=== PATIENT | female | born 1970 | race African-American/Black ===

== ENCOUNTER 2017-02-24 15:56 | Emergency (ER) | payer OTHER ==
[~2017-02-24] VITALS: Ht 160 cm; Wt 65.0 kg
[~2017-02-24 15:56] MED LIST: ASPI81TA82 PO
[2017-02-24 15:58] VITALS: BP 115/79; PULSE 108; RESP 20; TEMP 98.8; O2SAT 95
[2017-02-24] MEDS ORDERED: MORPHINE SULFATE 4 MG/ML INJ IV PUSH ONE (16:45)
[2017-02-24 16:47] LABS: AUTOMATED NEUTROPHIL # 3.1 TH/MM3 (1.8-7.7); BASOPHIL % 0.6 % (0.0-2.0); EOSINOPHIL % 0.6 % (0.0-4.0); HEMATOCRIT 38.6 % (35.0-46.0); HEMO FLAGS DIFF FINAL; LYMPH % 42.7 % (9.0-44.0); LYMPHOCYTE # 3.2 TH/MM3 (1.0-4.8); MEAN CELL VOLUME 87.6 FL (80.0-100.0); MEAN CORPUSCULAR HEMOGLOBIN 28.7 PG (27.0-34.0); MEAN CORPUSCULAR HGB CONC 32.8 % (32.0-36.0); NEUT % 42.1 % (16.0-70.0); PLATELET COUNT 313 TH/MM3 (150-450); RED CELL DISTRIBUTION WIDTH 13.6 % (11.6-17.2); WHITE BLOOD COUNT 7.4 TH/MM3 (4.0-11.0)
[2017-02-24 17:00] LABS: ALT (GPT) 35 U/L (10-53); ANION GAP 8 MEQ/L (5-15); AST (GOT) 20 U/L (15-37); BICARBONATE 22.8 MEQ/L (21.0-32.0); BLOOD UREA NITROGEN 15 MG/DL (7-18); CHLORIDE 106 MEQ/L (98-107); GLOMERULAR FILTRATION RATE 109 ML/MIN (>89); POTASSIUM 3.7 MEQ/L (3.5-5.1); SODIUM (NA) 137 MEQ/L (136-145)
[2017-02-24 17:17] LABS: ALKALINE PHOSPHATASE 64 U/L (45-117); BETA HCG QUANT 10395 MIU/ML (0-5); TOTAL BILIRUBIN ADULT 0.3 MG/DL (0.2-1.0)
--- NOTE | 2017-02-24 17:20 | PD ---
HPI Chief Complaint: Pain: Acute or Chronic Time Seen by Provider: 16:09 (Charlie Mathias MD) Travel History International Travel<30 days: No Contact w/Intl Traveler<30days: No Traveled to known affect area: No (Charlie Mathias MD) History of Present Illness HPI Is a 46-year-old woman who presents to the emergency department complaining of low back pain, as well as some sore throat. She is primarily Slovak/Creole speaking, and is difficult to get a history from. She states she can understand everything well, does not want a director transition. She reports she last had a menstrual period in December, she has was but thinks that she had a miscarriage because she's been bleeding since the beginning of January. This would be her seventh and she's had 3 other previous miscarriages. (Charlie Mathias MD) History Past Medical History Medical History: Denies Significant Hx Tetanus Vaccination: Unknown Influenza Vaccination: No LMP: December : 7 Para: 3 Dilation and Curettage (D&C): Yes (X 2) (Charlie Mathias MD) Social History Alcohol Use: No Tobacco Use: No (Charlie Mathias MD) Allergies-Medications (Allergen,Severity, Reaction): Coded Allergies: No Known Allergies (Verified , 02/24/17) Reported Meds & Prescriptions Reported Meds & Active Scripts Active No Active Prescriptions or Reported Medications (Sammie Recinos MD) Review of Systems Except as stated in HPI: all other systems reviewed are Neg (Charlie Mathias MD) Physical Exam Narrative GENERAL: Well-appearing 46 year-old woman, appears uncomfortable. She is holding her back. SKIN: Focused skin assessment warm/dry. ENT: No nasal bleeding or discharge. Mucous membranes pink and moist. Some irritation to the posterior oropharynx. A little bit of ulceration on the left side of the tongue. NECK: Trachea midline. No JVD. CARDIOVASCULAR: Regular rate and rhythm. No murmur appreciated. RESPIRATORY: No accessory muscle use. Clear to auscultation. Breath sounds equal bilaterally. GASTROINTESTINAL: Abdomen is flat and soft. Minimal suprapubic tenderness. MUSCULOSKELETAL: No obvious deformities. No edema. NEUROLOGICAL: Awake and alert. No obvious cranial nerve deficits. Motor grossly within normal limits. Normal speech. PSYCHIATRIC: Appropriate mood and affect; insight and judgment normal. (Charlie Mathias MD) Data Data Last Documented VS Vital Signs Date Time Temp Pulse Resp B/P (MAP) Pulse Ox O2 Delivery O2 Flow Rate FiO2 02/24/17 18:00 80 16 128/58 (81) 98 Room Air 02/24/17 15:58 98.8 (Sammie Recinos MD) Orders Orders Urinalysis - C+S If Indicated (02/24/17 16:15) Ed Urine Pregnancytest Poc (02/24/17 16:15) Complete Blood Count With Diff (02/24/17 16:32) Comprehensive Metabolic Panel (02/24/17 16:32) Beta Hcg (Quant/Titer) (02/24/17 16:32) Ed Poc Ultrasound (02/24/17 ) Iv Access Insert/Monitor (02/24/17 16:32) Morphine Inj (Morphine Inj) (02/24/17 16:45) Us Pelvis (Ques Pr/Ect)W Trans (02/24/17 ) (Sammie Recinos MD) Labs Laboratory Tests Test 02/24/17 16:35 02/24/17 17:30 White Blood Count 7.4 TH/MM3 Red Blood Count 4.40 MIL/MM3 Hemoglobin 12.6 GM/DL Hematocrit 38.6 % Mean Corpuscular Volume 87.6 FL Mean Corpuscular Hemoglobin 28.7 PG Mean Corpuscular Hemoglobin Concent 32.8 % Red Cell Distribution Width 13.6 % Platelet Count 313 TH/MM3 Mean Platelet Volume 8.2 FL Neutrophils (%) (Auto) 42.1 % Lymphocytes (%) (Auto) 42.7 % Monocytes (%) (Auto) 14.0 % Eosinophils (%) (Auto) 0.6 % Basophils (%) (Auto) 0.6 % Neutrophils # (Auto) 3.1 TH/MM3 Lymphocytes # (Auto) 3.2 TH/MM3 Monocytes # (Auto) 1.0 TH/MM3 Eosinophils # (Auto) 0.0 TH/MM3 Basophils # (Auto) 0.0 TH/MM3 CBC Comment DIFF FINAL Differential Comment Blood Urea Nitrogen 15 MG/DL Creatinine 0.70 MG/DL Random Glucose 87 MG/DL Total Protein 7.4 GM/DL Albumin 3.5 GM/DL Calcium Level 8.7 MG/DL Alkaline Phosphatase 64 U/L Aspartate Amino Transf (AST/SGOT) 20 U/L Alanine Aminotransferase (ALT/SGPT) 35 U/L Total Bilirubin 0.3 MG/DL Sodium Level 137 MEQ/L Potassium Level 3.7 MEQ/L Chloride Level 106 MEQ/L Carbon Dioxide Level 22.8 MEQ/L Anion Gap 8 MEQ/L Estimat Glomerular Filtration Rate 109 ML/MIN Human Chorionic Gonadotropin, Quant 66799 MIU/ML Urine Color LIGHT-YELLOW Urine Turbidity CLEAR Urine pH 5.5 Urine Specific [place] 1.010 Urine Protein NEG mg/dL Urine Glucose (UA) NEG mg/dL Urine Ketones 10 mg/dL Urine Occult Blood MOD Urine Nitrite NEG Urine Bilirubin NEG Urine Urobilinogen LESS THAN 2.0 MG/DL Urine Leukocyte Esterase TRACE Urine RBC 1 /hpf Urine WBC 1 /hpf Urine Squamous Epithelial Cells 1 /hpf Urine Mucus FEW /lpf Microscopic Urinalysis Comment CULT NOT INDICATED (Sammie Recinos MD) [facility] Medical Decision Making Medical Screen Exam Complete: Yes Emergency Medical Condition: Yes Differential Diagnosis Ectopic , abnormal , UTI, back strain or sprain, sore throat, ulceration, other Narrative Course Medical decision making This a 46-year-old woman, presents to the ED with several complaints in the very difficult history. She complains of sore throat and soreness on her time didn't make it hard for swallow. She has a small ulceration on the side of her tongue and may be causing the symptoms. She also states that she is having back pain. She initially denied being with a positive test. She then states that she thinks she had a miscarriage but has been bleeding since January and is surprised that she is still . Attempted a bedside ultrasound which appears to show abnormal hyperechoic mass in the uterus. Formal ultrasound was ordered. We'll do pelvic exam, morphine for pain, check labs and urine, reassess. (Charlie Mathias MD) Scripts No Active Prescriptions or Reported Meds Charlie Mathias MD Feb 24, 2017 17:20 Sammie Recinos MD Feb 24, 2017 19:17
--- NOTE | 2017-02-24 17:51 | RADRPT ---
EXAM DATE/TIME: 02/24/2017 17:10 [place] COMPARISON: No previous studies available for comparison. INDICATIONS : Bleeding. LAB(S): Beta-hC MEDICAL HISTORY : . SURGICAL HISTORY : Left breast biopsy. Left breast mastectomy. D&C. ENCOUNTER: Initial ACUITY: 2 weeks PAIN SCORE: 2/10 LOCATION: Bilateral pelvis MEASUREMENTS: UTERUS: 8.8 x 7.1 x 6.5 cm ENDOMETRIAL STRIPE: 17 mm RIGHT OVARY: 5.0 x 2.1 x 1.9 cm LEFT OVARY: 3.2 x 2.8 x 2.1 cm FINDINGS: UTERUS: Uterus is empty mild prominence of the endometrium. RIGHT OVARY: 2 cm cystic area right adnexa nonspecific. LEFT OVARY: Ovary contains no mass or significant cystic lesion. MISCELLANEOUS: No free fluid. CONCLUSION: Empty uterus the beta hCG of 10, 395. No free fluid. versus missed AB doubt ectopic. Follow up is suggested. Dustin Sellers MD FACR on February 24, 2017 at 17:47 Board Certified Radiologist. This report was verified electronically.
[2017-02-24 18:00] VITALS: BP 128/58; PULSE 80; RESP 16; O2SAT 98
[2017-02-24 18:03] LABS: BLOOD, URINE MOD (NEG); GLUCOSE,URINE NEG (NEG); KETONE, URINE 10 mg/dL (NEG); MUCUS URINE FEW /lpf (OCC); NITRITE,URINE NEG (NEG); PH, URINE 5.5 (5.0-8.5); SQUAMOUS EPITHELIAL CELL URINE 1 /hpf (0-5); URINE COLOR LIGHT-YELLOW (YELLW/STRAW)
[2017-02-24 18:04] LABS: COMMENT (UR) CULT NOT INDICATED; CULTURE IF INDICATED CULT NOT INDICATED
[2017-02-24] MEDS ORDERED: METHOTREXATE SOD PF 50 MG/2 ML VIAL IM ONE (19:30)
--- NOTE | 2017-02-24 19:38 | PD ---
Physical Exam Date Seen by Provider: Feb 24, 2017 Time Seen by Provider: 19:10 Narrative Accepted in transfer of care from Dr. Mathias Data Data Last Documented VS Vital Signs Date Time Temp Pulse Resp B/P (MAP) Pulse Ox O2 Delivery O2 Flow Rate FiO2 02/24/17 18:00 80 16 128/58 (81) 98 Room Air 02/24/17 15:58 98.8 Orders Orders Urinalysis - C+S If Indicated (02/24/17 16:15) Ed Urine Pregnancytest Poc (02/24/17 16:15) Complete Blood Count With Diff (02/24/17 16:32) Comprehensive Metabolic Panel (02/24/17 16:32) Beta Hcg (Quant/Titer) (02/24/17 16:32) Ed Poc Ultrasound (02/24/17 ) Iv Access Insert/Monitor (02/24/17 16:32) Morphine Inj (Morphine Inj) (02/24/17 16:45) Us Pelvis (Ques Pr/Ect)W Trans (02/24/17 ) Methotrexate Pf Inj (Methotrexate Pf Inj (02/24/17 20:15) Mandatory Outpatient Referral (02/24/17 21:48) Labs Laboratory Tests Test 02/24/17 16:35 02/24/17 17:30 White Blood Count 7.4 TH/MM3 Red Blood Count 4.40 MIL/MM3 Hemoglobin 12.6 GM/DL Hematocrit 38.6 % Mean Corpuscular Volume 87.6 FL Mean Corpuscular Hemoglobin 28.7 PG Mean Corpuscular Hemoglobin Concent 32.8 % Red Cell Distribution Width 13.6 % Platelet Count 313 TH/MM3 Mean Platelet Volume 8.2 FL Neutrophils (%) (Auto) 42.1 % Lymphocytes (%) (Auto) 42.7 % Monocytes (%) (Auto) 14.0 % Eosinophils (%) (Auto) 0.6 % Basophils (%) (Auto) 0.6 % Neutrophils # (Auto) 3.1 TH/MM3 Lymphocytes # (Auto) 3.2 TH/MM3 Monocytes # (Auto) 1.0 TH/MM3 Eosinophils # (Auto) 0.0 TH/MM3 Basophils # (Auto) 0.0 TH/MM3 CBC Comment DIFF FINAL Differential Comment Blood Urea Nitrogen 15 MG/DL Creatinine 0.70 MG/DL Random Glucose 87 MG/DL Total Protein 7.4 GM/DL Albumin 3.5 GM/DL Calcium Level 8.7 MG/DL Alkaline Phosphatase 64 U/L Aspartate Amino Transf (AST/SGOT) 20 U/L Alanine Aminotransferase (ALT/SGPT) 35 U/L Total Bilirubin 0.3 MG/DL Sodium Level 137 MEQ/L Potassium Level 3.7 MEQ/L Chloride Level 106 MEQ/L Carbon Dioxide Level 22.8 MEQ/L Anion Gap 8 MEQ/L Estimat Glomerular Filtration Rate 109 ML/MIN Human Chorionic Gonadotropin, Quant 31017 MIU/ML Urine Color LIGHT-YELLOW Urine Turbidity CLEAR Urine pH 5.5 Urine Specific [place] 1.010 Urine Protein NEG mg/dL Urine Glucose (UA) NEG mg/dL Urine Ketones 10 mg/dL Urine Occult Blood MOD Urine Nitrite NEG Urine Bilirubin NEG Urine Urobilinogen LESS THAN 2.0 MG/DL Urine Leukocyte Esterase TRACE Urine RBC 1 /hpf Urine WBC 1 /hpf Urine Squamous Epithelial Cells 1 /hpf Urine Mucus FEW /lpf Microscopic Urinalysis Comment CULT NOT INDICATED MDM Medical Record Reviewed: Yes Supervised Visit with AIDA: No Differential Diagnosis Accepted in transfer of care from Dr. Mathias Narrative Course Accepted in transfer of care from Dr. Mathias Patient has been seen by on-call LABOR RELATIONS ANALYST ED physician Dr. Boland who recommends to treat the patient as though this as an ectopic recommends administering methotrexate 50 MG/M2 as a one-time dose IM now at this time; she will need to have repeat quantitative hCG on 02/27/17 and 03/02/17 and will need to have outpatient DIRECTOR TALENT MANAGEMENT follow-up. Recommends follow-up with on-call DIRECTOR TALENT MANAGEMENT who is Dr. Walters; a mandatory referral to case management ordered in order to arrange follow-up with DIRECTOR TALENT MANAGEMENT for monitoring results of repeat quantitative hCGs from 02/27/17 and 03/02/17; this is discussed in detail with the patient as well as directions provided regarding obtaining repeat quantitative hCG levels on the and february and return to the emergency department for any concerns in the interim. Dosing has been confirmed through pharmacy as methotrexate 80 mg as a one-time IM injection in the emergency department. It's 9:35 PM patient has received her methotrexate dose and is stable for outpatient management. Physician Communication Physician Communication Discussed with OB ED physician Dr. Boland recommends administering one-time dose of methotrexate 50 MG's per meter squared IM times one dose Diagnosis Primary Impression: Qualified Codes: Z34.90 - Encounter for supervision of normal , unspecified, unspecified trimester Additional Impression: Other ectopic without intrauterine Referrals: Kay Walters MD 3 days Patient Instructions: General Instructions Additional Instruction: You will need to have repeat blood work collected on February 27, 2017 and March 02, 2017 for hormone level to be monitored at the [place] outpatient lab. You will need to have follow-up with information operator on-call physician is Dr. Walters; you will need to call office on Sunday. Return immediately to the emergency department for pain bleeding or any concerns May take acetaminophen/Tylenol every 4 hours as needed for fever 100.4F or greater or for minor discomfort Follow-up with your primary care provider as needed Scripts No Active Prescriptions or Reported Meds Disposition: 01 DISCHARGE HOME Condition: Stable Sammie Recinos MD Feb 24, 2017 19:38
--- NOTE | 2017-02-24 19:45 | PD.CONS ---
HPI Chief Complaint low back pain, sore throat, some abdominal pain Date Seen: Feb 24, 2017 Travel History International Travel<30 Days: No Contact w/Intl Traveler<30Days: No Known Affected Area: No History of Present Illness HPI Patient is a 46-year-old black female AB 3 who is Pakistani Creole does speak [place] presents complaining of low back pain and mild abdominal pain and sore throat sore tongue. She states that she had vaginal bleeding a week ago that was heavy for a day or 2 and then very light for a couple of days and now spotting, she has a low back pain she points of bright down to almost the sacrum when she says that's where it hurts and she has some lower abdominal pain left greater than right. Quantitative hCG is 10,400, and ultrasound reveals an empty uterus, no free fluid and normal adnexa bilaterally Weeks Gestation: 4 Para: 3 : 7 Last Menstrual Period: Feb 12, 2017 Miscarriage: 3 History Obstetric History Obstetric History 3 vaginal deliveries 3 early losses Social History Narrative Social History Patient speaks Pakistani Creole Alcohol Use: No Tobacco Use: No Substance Abuse: No Allergies-Medications (Allergen,Severity, Reaction): Coded Allergies: No Known Allergies (Verified , 02/24/17) Home Meds No Active Prescriptions or Reported Meds Review of Systems General / Constitutional: No: Fever, Weight Gain, Chills, Other Eyes: No: Diploplia, Blurred Vision, Visual changes, Pain, Photophobia HENT: No: Headaches, Vertigo, Lightheadedness Cardiovascular: No: Irregular Rhythm, Chest Pain or Discomfort, Palpitations, Tachycardia, Syncope, Varicosities, Edema, Cyanosis Respiratory: No: Cough, Short of Breath, Other Gastrointestinal: Abdominal Pain, No: Nausea, Vomiting, Diarrhea Genitourinary: Pelvic Pain, Vaginal Bleeding, No: Decreased Urinary Output, Oliguria Musculoskeletal: No: Limited ROM, Weakness, Cramping, Edema, Pain Skin: No Rash, No Itching, No Dryness, No Lumps, No Change in Pigmentation, No Change in Nails, No Alopecia, No Lesions Neurologic: No: Weakness, Dizziness, Syncope, Focal Abnormalities, Coordination Problem, Headache, Slurred Speech, Seizures Psychiatric: No: Depression, Suicidal Ideations, Homicidal Ideation Endocrine: No: Heat Intolerance, Cold Intolerance, Polydipsia, Polyuria, Other Physical Exam Vital Signs Date Time Temp Pulse Resp B/P (MAP) Pulse Ox O2 Delivery O2 Flow Rate FiO2 02/24/17 18:00 80 16 128/58 (81) 98 Room Air 02/24/17 15:58 98.8 108 20 115/79 (91) 95 Narrative GENERAL: Well-nourished, well-developed patient. SKIN: Warm and dry. HEAD: Normocephalic and atraumatic. EYES: No scleral icterus. No injection or drainage. ENT: No nasal drainage noted. Mucous membranes pink. Airway patent. NECK: Supple, trachea midline. No JVD. CARDIOVASCULAR: Regular rate and rhythm without murmurs, gallops, or rubs. RESPIRATORY: Breath sounds equal bilaterally. No accessory muscle use. BREASTS: Bilateral exam showed no masses , no retractions, no nipple discharge. ABDOMEN/GI: Abdomen soft, -tender in pelvis L>R no masses, bowel sounds present , no rebound, no guarding GENITOURINARY: External Genitalia: intact and normal in appearance minimal blood in vault near CX Cervix: [+ CMT 1-2 +- , uterus 1-2 + tender AF 1+ tender in R adnexa , 2 + tender in L no rebound EXTREMITIES: No cyanosis or edema. BACK: Nontender without obvious deformity. No CVA tenderness. NEUROLOGICAL: Awake and alert. Motor and sensory grossly within normal limits. Five out of 5 muscle strength in all muscle groups. Normal speech. Data Data Orders Orders Urinalysis - C+S If Indicated (02/24/17 16:15) Ed Urine Pregnancytest Poc (02/24/17 16:15) Complete Blood Count With Diff (02/24/17 16:32) Comprehensive Metabolic Panel (02/24/17 16:32) Beta Hcg (Quant/Titer) (02/24/17 16:32) Ed Poc Ultrasound (02/24/17 ) Iv Access Insert/Monitor (02/24/17 16:32) Morphine Inj (Morphine Inj) (02/24/17 16:45) Us Pelvis (Ques Pr/Ect)W Trans (02/24/17 ) Labs Laboratory Tests Test 02/24/17 16:35 02/24/17 17:30 White Blood Count 7.4 Red Blood Count 4.40 Hemoglobin 12.6 Hematocrit 38.6 Mean Corpuscular Volume 87.6 Mean Corpuscular Hemoglobin 28.7 Mean Corpuscular Hemoglobin Concent 32.8 Red Cell Distribution Width 13.6 Platelet Count 313 Mean Platelet Volume 8.2 Neutrophils (%) (Auto) 42.1 Lymphocytes (%) (Auto) 42.7 Monocytes (%) (Auto) 14.0 Eosinophils (%) (Auto) 0.6 Basophils (%) (Auto) 0.6 Neutrophils # (Auto) 3.1 Lymphocytes # (Auto) 3.2 Monocytes # (Auto) 1.0 Eosinophils # (Auto) 0.0 Basophils # (Auto) 0.0 CBC Comment DIFF FINAL Differential Comment Blood Urea Nitrogen 15 Creatinine 0.70 Random Glucose 87 Total Protein 7.4 Albumin 3.5 Calcium Level 8.7 Alkaline Phosphatase 64 Aspartate Amino Transf (AST/SGOT) 20 Alanine Aminotransferase (ALT/SGPT) 35 Total Bilirubin 0.3 Sodium Level 137 Potassium Level 3.7 Chloride Level 106 Carbon Dioxide Level 22.8 Anion Gap 8 Estimat Glomerular Filtration Rate 109 Human Chorionic Gonadotropin, Quant 91230 Urine Color LIGHT-YELLOW Urine Turbidity CLEAR Urine pH 5.5 Urine Specific [place] 1.010 Urine Protein NEG Urine Glucose (UA) NEG Urine Ketones 10 Urine Occult Blood MOD Urine Nitrite NEG Urine Bilirubin NEG Urine Urobilinogen LESS THAN 2.0 Urine Leukocyte Esterase TRACE Urine RBC 1 Urine WBC 1 Urine Squamous Epithelial Cells 1 Urine Mucus FEW Microscopic Urinalysis Comment CULT NOT INDICATED MDM Interpretation(s) 46-year-old black female with likely ectopic on the left side, quantitative hCG is over 10,000 with an empty uterus on ultrasound to night, adnexa within normal limits both ovaries seen no masses detected. And the ectopic would appear intact as there is no free fluid in the pelvis and no peritoneal signs as of now. Her vaginal bleeding is been minimal. Patient thought she just miscarried week ago when she was bleeding she's had that happen in the past but it appears the quite being over 10,000 is quite likely an ectopic with diagnosis is certain of to women treated with methotrexate 50 mg/m IM one time Plan This plan was discussed with the ER physicians who agreed and helpful to put in the orders for us she should do well with single dose therapy. She needs a quantitative hCG drawn on the fifth of this month that's next Sunday B day 4 of therapy and then the eighth which is next Leonardo would be day 7 and a quantitative hCG to be drawn then and needs to be at least 15% lower than the value tonight or its highest value after that if there is a decrease the appropriate amount then weekly quantitative hCGs need be drawn until a quantitative hCG is close to 0. Patient has a private doctor here in town Dr. Vuong but I couldn't really understand her and we couldn't find the DrKelley ;,but it may be possible arrange her follow-up with that physician. If that is not able to be done and then Dr. Walters is on for [facility] and would follow-up with her lab next week. We will pass the patient's name and information on Dr. Walters if that's going to be her follow-up Diagnosis: ectopic Disposition: 01 DISCHARGE HOME Condition: Stable Scripts No Active Prescriptions or Reported Meds Golden Boland II, MD Feb 24, 2017 19:45
[2017-02-24] MEDS ORDERED: METHOTREXATE IM ONE (20:15)
== END 2017-02-24 22:01 | disposition home or self-care (01) ==
LOC: NEPC 15:56
DX: O00.90 Unspecified ectopic pregnancy without intrauterine pregnancy (principal); J02.9 Acute pharyngitis, unspecified
CPT/HCPCS: 76700; 76817; 80053; 81001; 84702; 84703; 85025; 96372; 96374; 99285; J2270; J9250

== ENCOUNTER → 2017-02-27 | Outpatient (CLI) | payer OTHER ==
[2017-02-27 13:31] LABS: BETA HCG QUANT 10005 MIU/ML (0-5)
== END ==
LOC: CLAB 11:43
PROVIDERS: ATTEND Obstetrics & Gynecology
DX: Z34.90 Encounter for supervision of normal pregnancy, unspecified, unspecified trimester (principal)
CPT/HCPCS: 36415; 84702

== ENCOUNTER → 2017-03-06 | Outpatient (CLI) | payer OTHER ==
[2017-03-06 09:54] LABS: BETA HCG QUANT 4996 MIU/ML (0-5)
== END ==
LOC: CLAB 08:51
PROVIDERS: ATTEND Obstetrics & Gynecology
DX: Z34.00 Encounter for supervision of normal first pregnancy, unspecified trimester (principal)
CPT/HCPCS: 36415; 84702

== ENCOUNTER 2017-03-09 16:06 | Emergency (ER) | payer OTHER ==
[~2017-03-09] VITALS: Ht 160 cm; Wt 68.0 kg
[2017-03-09 16:09] VITALS: BP 123/78; PULSE 74; RESP 20; TEMP 97.2; O2SAT 98
== END 2017-03-09 18:23 | disposition left against medical advice (07) ==
LOC: NED 16:06
DX: N94.9 Unspecified condition associated with female genital organs and menstrual cycle (principal)
CPT/HCPCS: 99281

== ENCOUNTER → 2017-03-22 | Outpatient (CLI) | payer OTHER ==
[2017-03-22 15:59] LABS: BETA HCG QUANT 482 MIU/ML (0-5)
== END ==
LOC: CLAB 15:08
PROVIDERS: ATTEND Obstetrics & Gynecology
DX: O00.90 Unspecified ectopic pregnancy without intrauterine pregnancy (principal); Z3A.00 Weeks of gestation of pregnancy not specified
CPT/HCPCS: 36415; 84702; 86850; 86900; 86901